=== PATIENT | female | born 1970 | race African-American/Black ===

== ENCOUNTER 2016-11-03 20:09 | Emergency (ER) | payer OTHER ==
[~2016-11-03] VITALS: Ht 160 cm; Wt 68.0 kg
[~2016-11-03 20:09] MED LIST: AZITHROMYCIN250 MG ORAL; CIPRO500 MG PO; KEFLEX500 MG ORAL; NKM; NORCO 5-325 TA1 EACH ORAL; NORVASC5 MG ORAL; PHENERGAN6.25 MG/5 ORAL; PREDNISONE20 MG ORAL
[2016-11-03] MEDS ORDERED: MOBIC15 MG ORAL (21:51)
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
[2016-11-03 22:17] VITALS: BP 115/78
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
== END 2016-11-03 22:19 | disposition home or self-care (01) ==
LOC: EMR 21:15
DX: S50.01XA Contusion of right elbow, initial encounter (principal); W19.XXXA Unspecified fall, initial encounter; Y93.9 Activity, unspecified; Y92.410 Unspecified street and highway as the place of occurrence of the external cause
CPT/HCPCS: 99283

== ENCOUNTER 2017-11-06 21:47 | Emergency (ER) | payer BC, OTHER ==
[~2017-11-06] VITALS: Ht 160 cm; Wt 63.5 kg
[~2017-11-06 21:47] MED LIST changes: +MOBIC15 MG ORAL
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
[2017-11-06 22:50] VITALS: BP 116/80
[2017-11-06] MEDS ORDERED: HYDROCODON-ACE1 EA15 ORAL (22:53)
[2017-11-06] MEDS ORDERED: IBUPROFEN600 MG ORAL (22:53)
[2017-11-06 22:56] VITALS: BP 116/80
--- NOTE | 2017-11-07 17:13 | Diagnostic Imaging Report ---
Indication: Head trauma, headache Technique: Continuous helical CT scanning of the head was performed without intravenous contrast material. Axial and coronal 5 mm sections were generated. Dose: Total Dose Length Product - DLP [address] Dose Index - CTDIvol(s) 70.38 mGy. Automated exposure control was utilized for dose reduction. Comparison:None. Findings: The ventricular system is normal in size and configuration. There is no shift of midline structures. No abnormal extra-axial fluid collections are noted. There is no evidence of intracerebral bleeding. No other abnormal high or low density areas are noted within the brain. Impression: Normal CT scan of the head without contrast material. The above report is concordant with preliminary reading by [facility] . The CT scanner at [facility] is accredited by the [employer] and the scans are performed using protocols designed to limit radiation exposure to as low as reasonably achievable to attain images of sufficient resolution adequate for diagnostic evaluation.
--- NOTE | 2017-11-07 17:13 | Diagnostic Imaging Report ---
Indication: Reason For Exam: TRAUMA Technique: XRAY Ankle Compl Min 3v L Comparison: None. Findings: There is ossification adjacent to the medial malleolus. Soft tissue swelling is noted. No acute fracture. No bone destruction. Impression: Ossification adjacent to the medial malleolus. This is probably related to old trauma. Medial soft tissue swelling. Otherwise negative.
== END 2017-11-06 22:57 | disposition home or self-care (01) ==
LOC: EMR 22:20
DX: S09.90XA Unspecified injury of head, initial encounter (principal); S93.402A Sprain of unspecified ligament of left ankle, initial encounter; V43.52XA Car driver injured in collision with other type car in traffic accident, initial encounter; Y92.410 Unspecified street and highway as the place of occurrence of the external cause; I10 Essential (primary) hypertension
CPT/HCPCS: 70450; 99284